=== PATIENT | female | born 1950 | race Hispanic/Latino ===

== ENCOUNTER 2017-04-11 09:20 | Observation (INO) | payer MEDICARE, OTHER ==
[~2017-04-11] VITALS: Ht 157.5 cm; Wt 63.2 kg
[2017-04-11] MEDS ORDERED: IPRATROPIUM BROMIDE 0.02% 2.5 ML NEB NEB STA (09:38)
[2017-04-11] MEDS ORDERED: SODIUM CHLORIDE 0.9% 1000ML 1,000 ML IV STA (09:38)
[2017-04-11] MEDS ORDERED: ALBUTEROL SULF 0.083% NEB SOLN 3 ML NEB NEB STA (09:38)
[2017-04-11] MEDS ORDERED: ACETAMINOPHEN 325 MG TAB PO STA (09:38)
--- NOTE | 2017-04-11 11:17 | Diagnostic Imaging Report ---
PROCEDURE: CHEST SINGLE (PORTABLE) COMPARISON: None. INDICATIONS: FLU, COUGH FINDINGS: Lungs are well-inflated. Linear opacity in the right midlung. No airspace consolidation, pleural effusion, or pneumothorax. Stable cardiomediastinal contour with atherosclerotic calcification of the thoracic aorta. Normal heart size. No overt pulmonary edema. No acute osseous abnormality. CONCLUSION: Subsegmental atelectasis in the right midlung. Otherwise no acute cardiopulmonary abnormality. No consolidative pneumonia. Dictated by: Himanshu Cleveland M.D. on 04/11/2017 at 11:25 Electronically approved by: Himanshu Cleveland M.D. on 04/11/2017 at 11:25
[2017-04-11 11:32] LABS: BASOPHILS # (AUTO) 0.1 (0.0-0.1); BASOPHILS % 0.3 % (0.0-1.0); EOSINOPHILS # (AUTO) 0.1 (0.0-0.4); EOSINOPHILS % 0.6 % (0.0-6.0); HEMATOCRIT 37.8 % (34.2-44.1); HEMOGLOBIN 12.8 g/dL (12.0-16.0); LYMPHOCYTES # (AUTO) 2.8 (1.0-3.2); LYMPHOCYTES % 19.8 % (18.0-39.1); MEAN CORPUSCULAR HEMOGLOBIN 30.5 pg (28-32); MEAN CORPUSCULAR HGB CONC 33.9 g/dL (31-35); MONOCYTES # (AUTO) 0.8 (0.2-0.8); MONOCYTES % 5.8 % (4.4-11.3); NEUTROPHILS # (AUTO) 10.5 (2.1-6.9); NEUTROPHILS % 73.1 % (38.7-80.0); PLATELET COUNT 258 x10e3/uL (140-360); RED CELL DISTRIBUTION WIDTH 12.3 % (11.7-14.4)
[2017-04-11 11:53] LABS: ALANINE AMINOTRANSFERASE 20 IU/L (0-55); ALBUMIN 3.8 g/dL (3.5-5.0); ALBUMIN/GLOBULIN RATIO 0.8 (0.8-2.0); ALKALINE PHOSPHATASE 94 IU/L (40-150); ANION GAP 14.4 mmol/L (8-16); BLOOD UREA NITROGEN 14 mg/dL (7-26); BUN/CREATININE RATIO 19 (6-25); CALCIUM 9.6 mg/dL (8.4-10.2); CARBON DIOXIDE 26 mmol/L (22-29); CHLORIDE 100 mmol/L (98-107); CREATINE KINASE 51 IU/L (29-168); CREATININE, SERUM 0.73 mg/dL (0.57-1.11); EST GLOMERULAR FILTRATION RATE > 60 ML/MIN (60-); GLUCOSE 96 mg/dL (74-118); POTASSIUM 3.4 mmol/L (3.5-5.1); SODIUM 137 mmol/L (136-145)
[2017-04-11] MEDS ORDERED: SODIUM CHLORIDE 0.9% 1000ML 1,000 ML IV SCH (12:01)
[2017-04-11 12:02] LABS: TROPONIN I < 0.001 ng/mL (0-0.300)
[2017-04-11] MEDS ORDERED: LEVOFLOXACIN 750MG/DEXTROSE PREMIX BAG 150ML IV SCH (12:15)
[2017-04-11 14:35] VITALS: BP 132/60
[2017-04-11 14:56] VITALS: BP 132/60
[2017-04-11 15:32] VITALS: BP 132/60
[2017-04-11] MEDS: LEVOFLOXACIN 750MG/D5W 150ML 150 ML IV SCH (15:52)
[2017-04-11] MEDS: OSELTAMIVIR PHOSPHATE 75 MG CAP PO SCH (15:52)
[2017-04-11 18:46] LABS: CREATINE KINASE MB 0.3 ng/mL (0.00-5.00); TROPONIN I 0.001 ng/mL (0-0.300)
[2017-04-11] MEDS ORDERED: POTASSIUM CHLORIDE 20 MEQ TAB CR PO ONE (19:00)
[2017-04-11 19:22] LABS: BILIRUBIN,URINE 1+ (NEGATIVE); KETONES,URINE 2+ (NEGATIVE); LEUKOCYTE ESTERASE ,URINE 2+ (NEGATIVE); NITRITE,URINE NEGATIVE (NEGATIVE); URINE UROBILINOGEN 4 mg/dL (0.2 - 1)
[2017-04-11 19:24] LABS: CLARITY,URINE SL CLOUDY (CLEAR); COLOR,URINE YELLOW (YELLOW); PROTEIN,URINE DIPSTICK TRACE (NEGATIVE)
[2017-04-11] MEDS ORDERED: AMITRIPTYLINE H25 MG PO (19:25)
[2017-04-11] MEDS ORDERED: LOVASTATIN20 MG (19:25)
[2017-04-11] MEDS ORDERED: MECLIZINE HCL12.5 MG PO (19:25)
[2017-04-11] MEDS ORDERED: METOCLOPRAMIDE10 MG PO (19:25)
[2017-04-11] MEDS ORDERED: BUSPIRONE HCL5 MG PO (19:25)
[2017-04-11] MEDS ORDERED: VESICARE5 MG PO (19:25)
[2017-04-11] MEDS ORDERED: ASPIRIN325 MG PO (19:26)
[2017-04-11 19:35] LABS: AMORPHOUS SEDIMENT,URINE MODERATE (FEW); EPITHELIAL CELLS,URINE MANY /LPF; RBC,URINE 21-50 /HPF (0-5)
[2017-04-11 20:00] VITALS: BP 130/62
[2017-04-11] MEDS: IPRATROPIUM BROMIDE 0.02% 2.5 ML NEB NEB SCH (20:05)
[2017-04-11] MEDS: ALBUTEROL SULF 0.083% NEB SOLN 3 ML NEB NEB SCH ×2 (20:05→23:00)
[2017-04-11] MEDS: GUAIFENESIN 600 MG TAB PO SCH (20:38)
[2017-04-11] MEDS: SIMVASTATIN 20 MG TAB PO SCH (20:39)
[2017-04-11] MEDS: METOCLOPRAMIDE HCL 10 MG/2ML VIAL IV SCH (20:39)
[2017-04-11 21:40] VITALS: BP 130/62
[2017-04-12] VITALS: BP 124/67
[2017-04-12] MEDS ORDERED: GUAIFENESIN 600 MG TAB PO SCH
[2017-04-12] MEDS: GUAIFENESIN 600 MG TAB PO SCH ×5 (01:24→23:30)
[2017-04-12] MEDS: ALBUTEROL SULF 0.083% NEB SOLN 3 ML NEB NEB SCH ×5 (02:24→20:31)
[2017-04-12] MEDS: IPRATROPIUM BROMIDE 0.02% 2.5 ML NEB NEB SCH ×4 (02:24→20:31)
[2017-04-12 04:00] VITALS: BP 119/56
[2017-04-12 06:25] LABS: BASOPHILS % 0.2 % (0.0-1.0); EOSINOPHILS % 0.2 % (0.0-6.0); HEMATOCRIT 32.6 % (34.2-44.1); HEMOGLOBIN 11.3 g/dL (12.0-16.0); LYMPHOCYTES # (AUTO) 2.9 (1.0-3.2); LYMPHOCYTES % 32.3 % (18.0-39.1); MEAN CORPUSCULAR HEMOGLOBIN 30.7 pg (28-32); MEAN CORPUSCULAR HGB CONC 34.7 g/dL (31-35); MEAN CORPUSCULAR VOLUME 88.6 fL (81-99); MONOCYTES # (AUTO) 0.8 (0.2-0.8); MONOCYTES % 8.9 % (4.4-11.3); NEUTROPHILS # (AUTO) 5.2 (2.1-6.9); NEUTROPHILS % 57.8 % (38.7-80.0); PLATELET COUNT 229 x10e3/uL (140-360); RED BLOOD COUNT 3.68 x10e6/uL (3.6-5.1); RED CELL DISTRIBUTION WIDTH 12.2 % (11.7-14.4)
[2017-04-12 06:53] LABS: ANION GAP 11.9 mmol/L (8-16); BLOOD UREA NITROGEN 11 mg/dL (7-26); BUN/CREATININE RATIO 16 (6-25); CALCIUM 8.8 mg/dL (8.4-10.2); CARBON DIOXIDE 26 mmol/L (22-29); CHLORIDE 107 mmol/L (98-107); CREATINE KINASE 64 IU/L (29-168); CREATININE, SERUM 0.67 mg/dL (0.57-1.11); EST GLOMERULAR FILTRATION RATE > 60 ML/MIN (60-); GLUCOSE 103 mg/dL (74-118); MAGNESIUM 1.8 MG/DL (1.3-2.1); POTASSIUM 3.9 mmol/L (3.5-5.1); SODIUM 141 mmol/L (136-145)
[2017-04-12 07:02] LABS: B-TYPE NATRIURETIC PEPTIDE2 < 10.0 pg/mL (0-100)
[2017-04-12 07:16] LABS: FREE T4 (FREE THYROXINE) 1.25 ng/dL (0.8-1.8); THYROID STIMULATING HORMONE 2.922 uIU/mL (0.350-4.940); TROPONIN I 0.028 ng/mL (0-0.300)
[2017-04-12 08:59] VITALS: BP 118/58
[2017-04-12] MEDS ORDERED: ASPIRIN 325 MG TAB PO SCH (09:00)
[2017-04-12] MEDS: MECLIZINE HCL 12.5 MG TAB PO SCH (09:04)
[2017-04-12] MEDS: AMITRIPTYLINE HCL 25 MG TAB PO SCH (09:04)
[2017-04-12] MEDS: FAMOTIDINE 20 MG TAB PO SCH ×2 (09:04→17:05)
[2017-04-12] MEDS: ENOXAPARIN SOD INJ 40 MG/0.4 ML SYR SC SCH (09:04)
[2017-04-12] MEDS: METOCLOPRAMIDE HCL 10 MG/2ML VIAL IV SCH ×4 (09:04→20:25)
[2017-04-12] MEDS: OSELTAMIVIR PHOSPHATE 75 MG CAP PO SCH ×2 (09:04→17:05)
[2017-04-12] MEDS: SOLIFENACIN SUCCINATE 5 MG TAB PO SCH (09:04)
[2017-04-12] MEDS: BUSPIRONE HCL 5 MG TAB PO SCH ×2 (09:04→17:05)
[2017-04-12 12:01] VITALS: BP 125/60
[2017-04-12] MEDS: LEVOFLOXACIN 750MG/D5W 150ML 150 ML IV SCH (12:51)
[2017-04-12 16:00] VITALS: BP 122/56
[2017-04-12 20:16] VITALS: BP 127/60
[2017-04-12] MEDS: SIMVASTATIN 20 MG TAB PO SCH (20:25)
[2017-04-13 00:15] VITALS: BP 123/63
[2017-04-13] MEDS: IPRATROPIUM BROMIDE 0.02% 2.5 ML NEB NEB SCH ×3 (02:03→13:00)
[2017-04-13] MEDS: ALBUTEROL SULF 0.083% NEB SOLN 3 ML NEB NEB SCH ×3 (02:03→11:20)
[2017-04-13] MEDS: GUAIFENESIN 600 MG TAB PO SCH ×2 (05:23→12:11)
[2017-04-13 05:24] VITALS: BP 111/57
[2017-04-13 06:02] LABS: BASOPHILS # (AUTO) 0.1 (0.0-0.1); BASOPHILS % 0.7 % (0.0-1.0); EOSINOPHILS # (AUTO) 0.1 (0.0-0.4); HEMATOCRIT 33.4 % (34.2-44.1); HEMOGLOBIN 11.5 g/dL (12.0-16.0); LYMPHOCYTES # (AUTO) 2.9 (1.0-3.2); LYMPHOCYTES % 35.6 % (18.0-39.1); MEAN CORPUSCULAR HEMOGLOBIN 30.7 pg (28-32); MEAN CORPUSCULAR HGB CONC 34.4 g/dL (31-35); MEAN CORPUSCULAR VOLUME 89.1 fL (81-99); MONOCYTES # (AUTO) 0.8 (0.2-0.8); MONOCYTES % 9.6 % (4.4-11.3); NEUTROPHILS # (AUTO) 4.3 (2.1-6.9); NEUTROPHILS % 52.6 % (38.7-80.0); PLATELET COUNT 253 x10e3/uL (140-360); RED BLOOD COUNT 3.75 x10e6/uL (3.6-5.1); RED CELL DISTRIBUTION WIDTH 12.5 % (11.7-14.4)
[2017-04-13 06:19] LABS: ANION GAP 12.6 mmol/L (8-16); BLOOD UREA NITROGEN 11 mg/dL (7-26); BUN/CREATININE RATIO 15 (6-25); CALCIUM 9.2 mg/dL (8.4-10.2); CARBON DIOXIDE 26 mmol/L (22-29); CHLORIDE 106 mmol/L (98-107); CREATININE, SERUM 0.71 mg/dL (0.57-1.11); EST GLOMERULAR FILTRATION RATE > 60 ML/MIN (60-); GLUCOSE 104 mg/dL (74-118); POTASSIUM 3.6 mmol/L (3.5-5.1); SODIUM 141 mmol/L (136-145)
[2017-04-13] MEDS: METOCLOPRAMIDE HCL 10 MG/2ML VIAL IV SCH ×2 (07:30→12:11)
[2017-04-13 08:00] VITALS: BP 115/57
[2017-04-13] MEDS: OSELTAMIVIR PHOSPHATE 75 MG CAP PO SCH (09:51)
[2017-04-13] MEDS: BUSPIRONE HCL 5 MG TAB PO SCH (09:51)
[2017-04-13] MEDS: ENOXAPARIN SOD INJ 40 MG/0.4 ML SYR SC SCH (09:51)
[2017-04-13] MEDS: SOLIFENACIN SUCCINATE 5 MG TAB PO SCH (09:51)
[2017-04-13] MEDS: MECLIZINE HCL 12.5 MG TAB PO SCH (09:51)
[2017-04-13] MEDS: AMITRIPTYLINE HCL 25 MG TAB PO SCH (09:51)
[2017-04-13] MEDS: FAMOTIDINE 20 MG TAB PO SCH (09:51)
[2017-04-13 10:50] VITALS: BP 115/57
[2017-04-13] MEDS ORDERED: LEVAQUIN PO ×2 (10:50→10:53)
[2017-04-13] MEDS ORDERED: TAMIFLU75 MG PO ×2 (10:50→10:53)
[2017-04-13] MEDS ORDERED: MUCINEX600 MG PO (10:50)
[2017-04-13] MEDS ORDERED: MUCINEX DM ER1 EACH PO (10:53)
[2017-04-13 12:00] VITALS: BP 115/56
[2017-04-13] MEDS: LEVOFLOXACIN 750MG/D5W 150ML 150 ML IV SCH (12:11)
--- NOTE | 2017-04-15 13:00 | Discharge Summary ---
ADMITTING DIAGNOSES 1. Flu, possible pneumonia. 2. Hypertension. 3. Hyperlipidemia. 4. Hypokalemia. 5. Anxiety. 6. Urinary retention. DISCHARGE DIAGNOSES Flu, possible pneumonia. Hypertension. Hyperlipidemia. Hypokalemia. Anxiety. Rule out urinary retention. HISTORY: Patient has a history of stroke with right-sided weakness, hypertension, hyperlipidemia, anxiety, migraines, and bilateral tubal ligation. HOSPITAL COURSE: A 67-year-old female presented with fever, dry cough, chest congestion, vomiting, and muscle aches for the last 2 weeks that worsened over the last few days despite using three days of Tamiflu. She denies sinus drainage, congestion, and diarrhea. She denies any sick contacts. On admission, a chest x-ray was done that showed subsegmental atelectasis in the right mid lung, otherwise no acute cardiopulmonary abnormality, no consolidative pneumonia. Blood cultures negative. Urine cultures negative. Flu negative. Patient was started on Tamiflu and Levaquin, Mucinex ,and nebs. For hypertension and hyperlipidemia, home medicines were continued. Patient says she took lisinopril at home, but could not remember the dose; therefore, she was never given lisinopril during the hospital stay. Her blood pressure remained good enough to not need of lisinopril. Hypokalemia, on admission, her potassium was 3.4, was repleted and remained normal through the hospital stay. Patient felt better each day and was discharged home with Levaquin and 3 doses of Tamiflu and Mucinex. Patient will resume home medicines without lisinopril and will follow up with primary care in 1 to 2 weeks. Dictated by: Arlen Lam NP Job#: [id number] LAUREEN
== END 2017-04-13 14:15 | disposition home or self-care (01) ==
LOC: ER 09:20 → ERHOLD 13:02 → IMCU 13:10
PROVIDERS: ADMIT Internal Medicine; ATTEND Internal Medicine
DX: J11.1 Influenza due to unidentified influenza virus with other respiratory manifestations (principal); E87.6 Hypokalemia; I10 Essential (primary) hypertension; E78.5 Hyperlipidemia, unspecified; F41.9 Anxiety disorder, unspecified; G43.909 Migraine, unspecified, not intractable, without status migrainosus; I69.351 Hemiplegia and hemiparesis following cerebral infarction affecting right dominant side; Z79.82 Long term (current) use of aspirin
CPT/HCPCS: 36415 ×3; 71010; 80048 ×2; 80053; 81001; 82550 ×2; 82553 ×2; 83036; 83735; 83880; 84439; 84443; 84484 ×2; 85025 ×3; 87040; 87086; 87400; 93005; 94640 ×3; 99284; G0378 ×3; J1650 ×2; J2765 ×3; J7030

== ENCOUNTER 2018-07-01 10:31 | Observation (INO) | payer MEDICARE, OTHER ==
[~2018-07-01] VITALS: Ht 157.5 cm; Wt 63.6 kg
[~2018-07-01 10:31] MED LIST: AMITRIPTYLINE H25 MG PO; ASPIRIN325 MG PO; BUSPIRONE HCL5 MG PO; LEVAQUIN PO; LOVASTATIN20 MG; MECLIZINE HCL12.5 MG PO; METOCLOPRAMIDE10 MG PO; MUCINEX DM ER1 EACH PO; MUCINEX600 MG PO; TAMIFLU75 MG PO; VESICARE5 MG PO
--- OUTSIDE RECORDS SUMMARY | 2018-07-01 10:33 | XMS REPORT ---
Author Author [facility] Address Unknown Phone Unavailable Care Team Providers Care Automation Control Integrator Name Role Phone BETTYE REYES Unavailable Unavailable Rigo ORNELAS Unavailable Unavailable Payers Payer Name Policy Type Policy Number Effective Date Expiration Date Problems This patient has no known problems. Allergies, Adverse Reactions, Alerts Allergy Name Allergy Type Status Severity Reaction(s) Onset Date Inactive Date Treating Clinician Comments No Known Allergies DA Active U 2018-04-02 00:00:00 Medications This patient has no known medications. Encounters Start Date/Time End Date/Time Encounter Type Admission Type Attending Clinicians Care Facility Care Department Encounter ID 2017-01-04 00:00:00 2017-01-04 00:00:00 Outpatient [facility] [id number] Results Test Description Test Time Test Comments Text Results Atomic Results Result Comments CHEST SINGLE (PORTABLE) [facility] [address] [address] Patient Name: ELPIDIO GREEN MR #: [id number] : 1950 Age/Sex: 67/F Req #: [id number] Adm Physician: Ordered by: BETTYE REYES MD Report #: [id number] Location: ER Room/Bed: Procedure: [id number] DX/CHEST SINGLE (PORTABLE) Exam Date: Exam Time: REPORT STATUS: Signed PROCEDURE: CHEST SINGLE (PORTABLE) COMPARISON: None. INDICATIONS: FLU, COUGH FINDINGS: Lungs are well-inflated. Linear opacity in the right midlung. No airspace consolidation, pleural effusion, or pneumothorax. Stable cardiomediastinal contour with atherosclerotic calcification of the thoracic aorta. Normal heart size. No overt pulmonary edema. No acute osseous abnormality. CONCLUSION: Subsegmental atelectasis in the right midlung. Otherwise no acute cardiopulmonary abnormality. No consolidative pneumonia. Dictated by: Helio Mensah M.D. on 04/11/2017 at 11:25 Electronically approved by: Helio Mensah M.D. on 04/11/2017 at 11:25 Dictated By: HELIO MENSAH MD 1125 Transcribed By: ADRIAN on 04/11/17 1125 COPY TO: BETTYE REYES MD ABDOMEN ACUTE SERIES W/PA CXR [address] [place] [address] Patient Name: ELPIDIO GREEN MR #: [id number] : 1950 Age/Sex: 66/F Req #: [id number] Adm Physician: Ordered by: BEATRIZ ORNELAS MD Report #: [id number] Location: ER Room/Bed: Procedure: [id number] DX/ABDOMEN ACUTE SERIES W/PA CXR Exam Date: 12/12/16 Exam Time: 2214 REPORT STATUS: Signed EXAM: ABDOMEN ACUTE SERIES W/PA CXR DATE: 12/12/2016 10:02 PM Time stamp on exam: 2208 hours INDICATION: Abdominal pain COMPARISON: None FINDINGS: LINES/TUBES: None BOWEL PATTERN: No evidence for obstruction. SOFT TISSUES: Few pelvic phleboliths in the right hemipelvis. LUNGS: The lungs are clear. BONES: No acute findings. Partial sacralization of the right transverse process of L5. IMPRESSION: Nonobstructive bowel gas pattern. No acute intrathoracic abnormality Signed by: Dr. Mike Arriola M.D. on 12/12/2016 10:43 PM Dictated By: MIKE MEJIA MD 42 Transcribed By: HENRIQUE on 12/12/162242 COPY TO: BEATRIZ ORNELAS MD
--- NOTE | 2018-07-01 11:33 | Diagnostic Imaging Report ---
EXAMINATION: Head CT HISTORY: Facial numbness for the last hour COMPARISON: None. TECHNIQUE: Multidetector axial images were obtained without contrast from the foramen magnum to the vertex . The images were reconstructed using brain and bone algorithms. Thin section brain images were reformatted into coronal and sagittal planes. Image quality: Motion/streaking artifact limits the evaluation of the skull base and posterior cranial fossa. Dose modulation, iterative reconstruction, and/or weight based adjustment of the mA/kV was utilized to reduce the radiation dose to as low as reasonably achievable. FINDINGS: Parenchyma: 1. Few scatter mostly juxtacortical white matter hypodensities, most likely nonspecific chronic microvascular ischemic changes. 2. No mass or hemorrhage. No CT evidence of acute territorial vascular insult. Extra-axial spaces:No abnormal density. No extra-axial fluid collections Brain volume: Normal for age. Ventricles: No hydrocephalus or displacement. Arteries: No density suggestive of thrombus. Dural sinuses: No abnormal density. Extra-axial spaces: No abnormal density. Foramen magnum: No mass, Chiari malformation, or basilar invagination. Sella: No obvious mass. Paranasal/mastoid sinuses: Mucosal inflammatory thickening and partial opacification of the left greater than right sphenoid sinuses, otherwise clear. Skull/Scalp: No lytic or blastic lesions. No fractures. IMPRESSION: 1. No acute hemorrhage or cortical infarct. 2. Mild white matter chronic microvascular ischemic changes. 3. Sphenoid sinusitis. Signed by: Dr. Mey Floyd M.D. on 07/01/2018 11:30 AM
[2018-07-01 11:41] LABS: BASOPHILS # (AUTO) 0.1 (0.0-0.1); BASOPHILS % 0.7 % (0.0-1.0); EOSINOPHILS # (AUTO) 0.2 (0.0-0.4); EOSINOPHILS % 1.7 % (0.0-6.0); HEMATOCRIT 38.7 % (34.2-44.1); HEMOGLOBIN 13.1 g/dL (12.0-16.0); LYMPHOCYTES % 33.3 % (18.0-39.1); MEAN CORPUSCULAR HGB CONC 33.9 g/dL (31-35); MEAN CORPUSCULAR VOLUME 88.6 fL (81-99); MONOCYTES # (AUTO) 0.7 (0.2-0.8); MONOCYTES % 8.1 % (4.4-11.3); NEUTROPHILS % 55.9 % (38.7-80.0); PLATELET COUNT 271 x10e3/uL (140-360); RED BLOOD COUNT 4.37 x10e6/uL (3.6-5.1); RED CELL DISTRIBUTION WIDTH 13.4 % (11.7-14.4)
[2018-07-01 11:44] LABS: INR 0.91; PROTHROMBIN TIME 12.7 seconds (11.9-14.5)
[2018-07-01 11:45] LABS: PARTIAL THROMBOPLASTIN TIME 29.9 seconds (23.8-35.5)
[2018-07-01 11:55] LABS: ALANINE AMINOTRANSFERASE 17 IU/L (0-55); ALKALINE PHOSPHATASE 102 IU/L (40-150); ANION GAP 14.9 mmol/L (8-16); BLOOD UREA NITROGEN 8 mg/dL (7-26); BUN/CREATININE RATIO 11 (6-25); CALCIUM 9.5 mg/dL (8.4-10.2); CARBON DIOXIDE 21 mmol/L (22-29); CHLORIDE 100 mmol/L (98-107); CREATINE KINASE 67 IU/L (29-168); CREATININE, SERUM 0.74 mg/dL (0.57-1.11); EST GLOMERULAR FILTRATION RATE > 60 ML/MIN (60-); GLUCOSE 105 mg/dL (74-118); POTASSIUM 3.9 mmol/L (3.5-5.1); SODIUM 132 mmol/L (136-145)
--- NOTE | 2018-07-01 12:09 | Diagnostic Imaging Report ---
A single frontal view of the chest. HISTORY: Face numbness COMPARISON: None available. DISCUSSION: Portable technique, limits sensitivity of the exam. Soft tissue attenuation partially limits sensitivity of the exam. Overlying artifacts. Tubes/Lines: None Lungs and pleura: The lungs are well inflated. No evidence of a consolidative pneumonia or pulmonary alveolar edema. No definite pleural effusion or pneumothorax is identified. Heart and mediastinum: The cardiomediastinal silhouette appears unremarkable. Bones and soft tissues: Appear unremarkable, given this limited exam. IMPRESSION: No acute radiographic abnormality. Signed by: Dr. Waldo Rodriguez D.O., M.M.M. on 07/01/2018 12:05 PM
[2018-07-01 12:17] LABS: THYROID STIMULATING HORMONE 2.355 uIU/mL (0.350-4.940)
[2018-07-01 17:17] LABS: BILIRUBIN,URINE NEGATIVE (NEGATIVE); CLARITY,URINE CLEAR (CLEAR); COLOR,URINE YELLOW (YELLOW); KETONES,URINE 2+ (NEGATIVE); LEUKOCYTE ESTERASE ,URINE NEGATIVE (NEGATIVE); NITRITE,URINE NEGATIVE (NEGATIVE); PROTEIN,URINE DIPSTICK NEGATIVE (NEGATIVE)
[2018-07-01 17:18] LABS: URINE UROBILINOGEN 1 mg/dL (0.2 - 1)
[2018-07-01 17:27] LABS: EPITHELIAL CELLS,URINE MANY /LPF
[2018-07-01 17:28] LABS: BACTERIA,URINE MANY /HPF; TRANSITIONAL EPI CELLS,URINE MANY; WBC,URINE (MAN) 0-5 /HPF (0-5)
[2018-07-01] MEDS ORDERED: ASPIRIN 325 MG TAB PO NR (18:15)
[2018-07-01 20:15] VITALS: BP 153/68
[2018-07-01 22:00] VITALS: BP 153/68
[2018-07-01] MEDS ORDERED: BUPROPION HCL150 M2 PO (22:56)
[2018-07-01] MEDS ORDERED: ALENDRONATE SOD70 MG PO (22:56)
[2018-07-01] MEDS ORDERED: COLACE100 MG PO (22:56)
[2018-07-01] MEDS ORDERED: CEFUROXIME250 MG PO (22:56)
[2018-07-01] MEDS ORDERED: PANTOPRAZOLE SO40 MG PO (22:56)
[2018-07-02] VITALS (7 sets, daily range): BP systolic 115–131; BP diastolic 55–88
--- NOTE | 2018-07-02 07:18 | NUR ---
Walking rounds done and report received. patient is awake and alertx3 in NAD. Continues to complain of lower lip numbness, unchanged from yesterday. POC discussed. Patient instructed to call for assistance as needed and verbalized understanding. daughter at the bedside.
[2018-07-02] MEDS ORDERED: ONDANSETRON HCL INJ 2MG/ML 2ML 2 MG/ML VIAL IV PRN (09:00)
[2018-07-02] MEDS ORDERED: BUSPIRONE HCL 5 MG TAB PO PRN (09:00)
[2018-07-02] MEDS ORDERED: HYDRALAZINE HCL 20 MG/ML VIAL IV PRN (09:00)
[2018-07-02] MEDS: BUPROPION HCL SR 150 MG TAB PO SCH (09:06)
[2018-07-02] MEDS: ACETAMINOPHEN 325 MG TAB PO PRN (09:06)
[2018-07-02] MEDS: ASPIRIN 325 MG TAB EC PO SCH (09:06)
[2018-07-02] MEDS: PANTOPRAZOLE SOD 40 MG TABEC PO SCH (09:06)
[2018-07-02] MEDS: SOLIFENACIN SUCCINATE 5 MG TAB PO SCH (09:06)
[2018-07-02 09:08] LABS: BASOPHILS # (AUTO) 0.1 (0.0-0.1); BASOPHILS % 0.8 % (0.0-1.0); EOSINOPHILS # (AUTO) 0.1 (0.0-0.4); EOSINOPHILS % 1.9 % (0.0-6.0); HEMATOCRIT 35.1 % (34.2-44.1); LYMPHOCYTES # (AUTO) 1.8 (1.0-3.2); LYMPHOCYTES % 28.9 % (18.0-39.1); MEAN CORPUSCULAR HEMOGLOBIN 30.1 pg (28-32); MEAN CORPUSCULAR HGB CONC 34.2 g/dL (31-35); MONOCYTES # (AUTO) 0.7 (0.2-0.8); MONOCYTES % 11.2 % (4.4-11.3); NEUTROPHILS # (AUTO) 3.6 (2.1-6.9); NEUTROPHILS % 56.7 % (38.7-80.0); PLATELET COUNT 252 x10e3/uL (140-360); RED BLOOD COUNT 3.99 x10e6/uL (3.6-5.1); RED CELL DISTRIBUTION WIDTH 13.5 % (11.7-14.4)
[2018-07-02 09:23] LABS: ANION GAP 12.1 mmol/L (8-16); BLOOD UREA NITROGEN 11 mg/dL (7-26); BUN/CREATININE RATIO 14 (6-25); CALCIUM 9.2 mg/dL (8.4-10.2); CARBON DIOXIDE 23 mmol/L (22-29); CHLORIDE 103 mmol/L (98-107); CHOL/HDL RATIO 3.4 (3.0-3.6); CHOLESTEROL 164 MD/DL (0-199); CREATININE, SERUM 0.81 mg/dL (0.57-1.11); EST GLOMERULAR FILTRATION RATE > 60 ML/MIN (60-); GLUCOSE 107 mg/dL (74-118); HDL CHOLESTEROL 48 MG/DL (40-60); LDL CHOLESTEROL 97 MG/DL (60-130); POTASSIUM 4.1 mmol/L (3.5-5.1); SODIUM 134 mmol/L (136-145); TRIGLYCERIDES 95 MG/DL (0-149)
[2018-07-02 09:31] LABS: B-TYPE NATRIURETIC PEPTIDE2 < 10.0 pg/mL (0-100)
[2018-07-02 09:43] LABS: FREE T4 (FREE THYROXINE) 1.07 ng/dL (0.9-1.8); THYROID STIMULATING HORMONE 2.829 uIU/mL (0.350-4.940)
--- NOTE | 2018-07-02 12:22 | NUR ---
SOCIAL WORK INITIAL ASSESSMENT Country Sales Manager to bedside to discuss plan of care with patient/family. CM/SW role and care transitions discussed. Anticipated discharge plan discussed along with duration of care. CM/SW discussed patients right to make decisions in care. CM/SW work hours given. Patient lives: WITH DAUGHTER AND FAMILY Admit/Transfer: VIA ED FROM HOME POA/Emergency contact: LIA HALL [phone] Current/Previous Home Health: [facility] PCP/Follow-up Care: KASSIE Current/Previous DME: [facility] [employer] Other Services: NONE Employment Status: NEVER WORKED Areas of Concerns: NONE Referral Needs: NONE Education Needs: NONE IMM/LAM given and signed (if applicable): UPON ADMISSION Goal for discharge: RETURN HOME WITH FAMILY CM/SW left business card at the bedside with contact information. Name and number was also written on the patients whiteboard. Patient verbalized understanding of discussion. CM will follow-up with ongoing discharge and transition of care needs.
--- NOTE | 2018-07-02 12:23 | Diagnostic Imaging Report ---
History: Numbness around mouth Comparison studies: CT head 07/01/2018 Technique: Sagittal T2; axial DWI, FLAIR, MPGR, T1, Coronal FLAIR. Intravenous contrast: None Findings: Scalp: Normal in signal . No masses . Bone marrow: Normal in signal intensity. Extra-axial: No masses, no fluid collections. Brain sulci: Appropriate for age. Ventricles: Normal in size . No hydrocephalus . Parenchyma: Scattered small T-2/flair hyperintensities of the periventricular and deep white matter. Small hyperintensity at the right central juliette. No masses, hemorrhage, acute or chronic vascular insults. Suprasellar region: No abnormalities. Craniocervical junction: No abnormalities. Patent foramen magnum. No Chiari one malformation. Vessels: Normal flow-voids in the arteries and sinuses. Mucosal thickening at the left sphenoid sinus. IMPRESSION: 1. No acute intracranial abnormality. 2. Mild chronic microvascular ischemic changes of the white matter. 3. Nonspecific inflammatory mucosal thickening of the left sphenoid sinus Signed by: DR Urbano Austin M.D. on 07/02/2018 12:20 PM
[2018-07-02] MEDS ORDERED: CEFTRIAXONE SOD 1 GM VIAL IV SCH (13:00)
[2018-07-02] MEDS ORDERED: CEFTRIAXONE SOD 1 GM/NS 50 ML 50 ML IV SCH (13:30)
[2018-07-02] MEDS ORDERED: DOCUSATE SODIUM 100 MG CAP PO SCH (21:00)
[2018-07-02] MEDS ORDERED: SIMVASTATIN 40 MG TAB PO SCH (21:00)
--- NOTE | 2018-07-02 22:17 | Consultation ---
DATE OF CONSULTATION: 07/02/2018 Neurology Consult Note HISTORY OF PRESENT ILLNESS: Ms. Rucker is a 68-year-old right-hand dominant woman with past medical history significant for prior stroke with residual dysarthria, expressive aphasia, and right hemiparesis, admitted to [facility] on July 01, 2018, with symptoms suspicious for transient ischemic attack. At approximately 0900 hours on the morning of admission, the patient experienced the rather sudden onset of a heated sensation over the entire face. Ms. Rucker reports a sensation as though "something was walking" over her entire face as well. The patient and her family report confusion, dizziness, and worsening of the patient's prior neurological deficits. Concerned the patient was having another stroke, Ms. Rucker was brought to the emergency center at [facility] by family members for further evaluation of her symptoms. Upon arrival in the emergency center, the patient was afebrile with a blood pressure of 146/84 mmHg and a pulse of 60 beats per minute. The patient's neurological examination was significant for aphasia, abnormal speech. Otherwise, no focal deficits were noted. While in the emergency center, a CT of the brain without contrast was performed. This study did not reveal evidence of recent large territorial ischemia, hemorrhage, mass, or mass effect. Ms. Rucker was admitted to [facility] under observation status for further evaluation and treatment. As stated above, the patient experienced a stroke in 2017. Residual deficits from that stroke include dysarthria, expressive aphasia, right hemiparesis, poor balance, and impairment of gait resulting in the patient using a cane while ambulating. Ms. Rucker takes aspirin 325 mg by mouth daily for stroke prophylaxis. The patient endorses compliance with this medication. The patient does not report burning with urination, discharge, or urinary urgency. Ms. Rucker does report urinary frequency, but reports this is chronic. REVIEW OF SYSTEMS: Urinary frequency, confusion, dysarthria, expressive aphasia, right facial weakness, right hemiparesis, dizziness which is further described as a vertiginous sensation. Otherwise, a 12-point review of systems is negative. PAST MEDICAL HISTORY: Hyperlipidemia, diastolic congestive heart failure, gastroesophageal reflux disease, prior stroke in 2017 with residual dysarthria, expressive aphasia, right hemiparesis, and osteoporosis. PAST SURGICAL HISTORY: Total hysterectomy, bilateral tubal ligation. PAST HOSPITALIZATIONS: Surgeries/procedures as listed, stroke and stroke like symptoms x3, childbirth x5. FAMILY MEDICAL HISTORY: The patient's paternal and maternal grandparents are . Their medical histories are unknown. The patient's father is . His medical history is unknown. Ms. Rucker's mother is . She had mesothelioma. The patient had 7 brothers. One brother is due to lymphoma. Another brother is from GI cancer. One brother is alive and healthy. Another brother is alive, but has an unknown cancer. Third brother is alive and has diabetes mellitus. Fourth brother is alive and has thyroid disease. Fifth brother is alive, but his medical history is unknown. Ms. Rucker had 5 children, 4 sons and 2 daughters. One son is from sudden infant syndrome. Another son is from electrocution. A third son is following a gunshot wound resulting in quadriplegia with due to infection. The fourth son is alive, but his medical history is unknown. The patient's daughter is alive. She has GI cancer as well as chronic kidney disease. SOCIAL HISTORY: Ms. Rucker is . She is retired. The patient reports a prior history of tobacco use, but quit smoking cigarettes approximately 6 months ago. The patient does not report current or prior alcohol or recreational drug use. HOME MEDICATIONS: Aspirin 325 mg by mouth daily, lovastatin 20 mg by mouth at bedtime daily, alendronate 70 mg by mouth daily, bupropion 150 mg by mouth daily, buspirone 7.5 mg by mouth 3 times daily as needed, cefuroxime 250 mg by mouth every 12 hours, Colace 2 capsules by mouth at bedtime daily, Protonix 40 mg by mouth daily, VESIcare 5 mg by mouth daily. ALLERGIES: NO KNOWN DRUG ALLERGIES. NO KNOWN FOOD ALLERGIES. NO KNOWN ALLERGIES TO LATEX. NO KNOWN ALLERGIES TO IODINE OR OTHER CONTRAST MATERIALS. PHYSICAL EXAMINATION: VITAL SIGNS: Height 62 inches, weight 140 pounds, BMI 25.7 kg/m2, blood pressure 123/60 mmHg, pulse 82 beats per minute, respiratory rate 16 breaths per minute, and oxygen saturation 97% on room air. GENERAL: The patient is awake and alert, does not appear distressed. HEENT: Normocephalic, atraumatic. Pupils are equal, round, and reactive to light. Moist mucous membranes. NECK: Supple. No appreciable thyromegaly. No appreciable carotid bruits. CARDIOVASCULAR: S1, S2, regular rate and rhythm. A low grade systolic ejection murmurs appreciated. No rubs or gallops. RESPIRATORY: Clear to auscultation bilaterally. No wheezes, rhonchi, or rales. EXTREMITIES: The skin is warm and dry. No clubbing, cyanosis, or edema. The posterior tibial and dorsalis pedis pulses are 2+ and symmetric. SKIN: No rashes or lesions. NEUROLOGIC: Memory/Attention: The patient is awake and alert, oriented to person, place, time, and situation. Cranial Nerves: Cranial nerve I - not tested. Cranial nerves II, III, IV, and - pupils are equal and round, reactive briskly to light (from 4 mm to 2 mm). Extraocular movements intact. No nystagmus. Cranial nerve V - sensation to light touch and pinprick is intact in the bilateral V1 through V3 distributions. Strength in the temporalis and masseter muscles are within normal limits. Cranial nerve VII - the face is symmetric as are all facial movements. Strength is within normal limits. Cranial nerve VIII - hearing is intact to finger rub bilaterally. Cranial nerves IX, X - the soft palate elevates equally and symmetrically. Cranial nerve XI - normal strength of the bilateral sternocleidomastoid and trapezius muscles. Cranial nerve XII - the tongue protrudes midline and moves symmetrically from apqh-gb-bell. Strength: Bulk is normal. Strength is 5/5 in the bilateral deltoids, biceps, triceps, wrist flexors and extensors, finger flexors and extensors, intrinsic hand muscles, hip flexors, knee flexors and extensors, ankle dorsiflexion and plantar flexion, and intrinsic foot muscles except as follows: The right wrist and finger extensors are 4/5. Tone is normal. DTRs: Deep tendon reflexes are 2+ and symmetric at the triceps, biceps, brachioradialis, and patellas. Deep tendon reflexes are 1+ and symmetric at the Achilles. Plantar responses are flexor bilaterally. Sensation: Sensation is intact to light touch and pinprick in both arms and both legs. Cerebellar: Yifblw-vgbu-cuhnau and heel-srinivasan movements are intact without dysmetria or other impairment. Gait: Deferred. Speech: Spontaneous speech is very mildly dysarthric without aphasia. Repetition is intact. Involuntary Movements: None. Pronator Drift: None. LABORATORY DATA: The most recent basic metabolic panel is significant only for a serum sodium of 134. A liver function panel collected on July 01, 2018 was unremarkable. Hemoglobin A1c 5.3. B-natriuretic peptide 10.3, less than 10.0. Total cholesterol 164, triglycerides 95, LDL cholesterol 97, HDL cholesterol 48. TSH 2.355, 2.829. Free T4 of 1.07. The CBC with differential and platelets are unremarkable. The coagulation profile is within normal limits. Urinalysis is significant for pH of 8, 2+ ketones, many epithelial and transitional epithelial cells and many bacteria. A urine culture collected on July 01, 2018, grew enterococcus species. DIAGNOSTIC STUDIES: Electrocardiogram on 07/01/2018: Normal sinus rhythm at 85 beats per minute. Chest x-ray on 07/01/2018: No acute radiographic abnormality. CT of the brain without contrast on 07/01/2018: On my review, there is no evidence of recent large territorial ischemia, hemorrhage, mass, or mass effect. Cerebral volumes are appropriate for age. There are findings compatible with ydsg-bv-jbtvhpwb chronic small vessel ischemic disease. Echocardiogram on 07/02/2018: Ejection fraction 50% to 55%. Mild mitral regurgitation. Bilateral carotid artery ultrasound with Doppler on 07/02/2018: There is no atherosclerosis in either carotid artery system. Flow is antegrade in the bilateral vertebral arteries. MRI of the brain without contrast on 07/02/2018: On my review, there is no evidence of recent large territorial ischemia, hemorrhage, mass, or mass effect. Cerebral volumes are appropriate for age. There are scattered T2/FLAIR hyperintense foci of the deep white matter as well as the right central juliette, compatible with mild chronic small vessel ischemic disease. ASSESSMENT AND PLAN: Ms. Rucker is a 68-year-old right-hand dominant woman with past medical history significant for a prior stroke with residual dysarthria, expressive aphasia, and right hemiparesis, admitted to [facility] on July 01, 2018, with transient worsening of the previously described deficits and a urinary tract infection. At present, the patient's neurological examination is significant for mild weakness of the right wrist and finger extensors, diminished ankle jerk reflexes, and very mild dysarthria. The patient's laboratory data and other diagnostic studies have been reviewed and are documented above. In my opinion, Ms. Rucker has not experienced a new cardiovascular event. It is far more likely the patient has recrudescence of prior deficits, probably from the underlying urinary tract infection. RECOMMENDATIONS: Are as follows: 1. Continue antibiotics for the urinary tract infection. 2. Continue aspirin 325 mg by mouth daily for stroke prophylaxis. 3. The patient's goal blood pressure is less than 130/70 mmHg. The patient's blood pressures are at goal. Continue to monitor vital signs per unit protocol and add/adjust antihypertensive medications accordingly. 4. The patient's goal total cholesterol is less than 200 with an LDL of less than 70. The patient's LDL is 96. Continue treatment with her home medication of lovastatin, but increase the dose to 40 mg by mouth at bedtime daily. A repeat lipid panel will need to be drawn in approximately 8 weeks. 5. The patient's goal hemoglobin A1c is less than 7.0. Ms. Rucker does not have a history of diabetes mellitus nor does she take any hypoglycemic medications. 6. Defer treatment of the remaining medical comorbidities to the primary and other services following the patient. There are no other recommendations from the Neurology service at this time. Please call again with any questions or concerns. TIME SPENT: 50 minutes. Michelle Harris MD CP/ENMANUEL /[id number] [facility]
[2018-07-03 00:56] VITALS: BP 120/56
[2018-07-03 04:41] VITALS: BP 110/64
[2018-07-03 05:58] LABS: BASOPHILS # (AUTO) 0.1 (0.0-0.1); BASOPHILS % 0.7 % (0.0-1.0); EOSINOPHILS # (AUTO) 0.2 (0.0-0.4); EOSINOPHILS % 3.3 % (0.0-6.0); HEMATOCRIT 34.6 % (34.2-44.1); HEMOGLOBIN 11.6 g/dL (12.0-16.0); LYMPHOCYTES # (AUTO) 2.1 (1.0-3.2); LYMPHOCYTES % 30.6 % (18.0-39.1); MEAN CORPUSCULAR HEMOGLOBIN 29.7 pg (28-32); MEAN CORPUSCULAR HGB CONC 33.5 g/dL (31-35); MEAN CORPUSCULAR VOLUME 88.5 fL (81-99); MONOCYTES # (AUTO) 0.8 (0.2-0.8); MONOCYTES % 10.9 % (4.4-11.3); NEUTROPHILS # (AUTO) 3.7 (2.1-6.9); NEUTROPHILS % 54.1 % (38.7-80.0); PLATELET COUNT 251 x10e3/uL (140-360); RED BLOOD COUNT 3.91 x10e6/uL (3.6-5.1); RED CELL DISTRIBUTION WIDTH 13.7 % (11.7-14.4)
[2018-07-03 06:21] LABS: ANION GAP 11.1 mmol/L (8-16); BLOOD UREA NITROGEN 9 mg/dL (7-26); BUN/CREATININE RATIO 13 (6-25); CALCIUM 8.9 mg/dL (8.4-10.2); CARBON DIOXIDE 24 mmol/L (22-29); CHLORIDE 105 mmol/L (98-107); CREATININE, SERUM 0.72 mg/dL (0.57-1.11); EST GLOMERULAR FILTRATION RATE > 60 ML/MIN (60-); GLUCOSE 93 mg/dL (74-118); MAGNESIUM 2.1 MG/DL (1.3-2.1); POTASSIUM 4.1 mmol/L (3.5-5.1); SODIUM 136 mmol/L (136-145)
[2018-07-03] MEDS ORDERED: SIMVASTATIN40 MG PO (07:02)
--- NOTE | 2018-07-03 07:18 | NUR ---
PT ALERT AND SITTING IN CHAIR AT BEDSIDE, RESP EVEN, AND UNLABORED NO DISTRESS NOTED PT ABLE TO MAKE NEEDS KNOWN, CALL LIGHT IN REACH FAMILY AT BEDSIDE.
[2018-07-03] MEDS: ASPIRIN 325 MG TAB EC PO SCH (08:35)
[2018-07-03] MEDS: SOLIFENACIN SUCCINATE 5 MG TAB PO SCH (08:35)
[2018-07-03] MEDS: BUPROPION HCL SR 150 MG TAB PO SCH (08:35)
[2018-07-03] MEDS: PANTOPRAZOLE SOD 40 MG TABEC PO SCH (08:35)
[2018-07-03 08:46] VITALS: BP 115/56
[2018-07-03] MEDS: AMPICILLIN SOD 500 MG in SODIUM CHLORIDE 0.9% 50ML 50 ML IV SCH ×2 (11:59→17:38)
[2018-07-03 12:00] VITALS: BP 119/59
[2018-07-03] MEDS ORDERED: SODIUM CHLORIDE 0.9% 250ML 250 ML ONE (12:14)
[2018-07-03] MEDS: ACETAMINOPHEN 325 MG TAB PO PRN (15:55)
[2018-07-03 16:39] VITALS: BP 108/52
[2018-07-03] MEDS ORDERED: AMOXICILLIN500 MG PO (18:58)
--- NOTE | 2018-07-03 19:31 | NUR ---
REPORT GIVEN TO ONCOMING NURSE FOR CONTINUED CARE
[2018-07-03 19:41] VITALS: BP 121/58
--- NOTE | 2018-07-03 20:05 | NUR ---
patient discharged via wheelchair to private auto in stable condition. iv removed from right ac, with tip intact. patient received discharge packet, prescriptions were phoned in by LEHR LOADER of Dr. King.
--- NOTE | 2018-07-04 02:44 | Discharge Summary ---
ADMISSION DIAGNOSES: Transient ischemic attack, hypertension, anxiety, gastroesophageal reflux disease, urinary incontinence, urinary tract infection. DISCHARGE DIAGNOSES: Transient ischemic attack, hypertension, anxiety, gastroesophageal reflux disease, urinary incontinence, urinary tract infection. Rule out transient ischemic attack/rule out cerebrovascular accident. HISTORY: The patient has a history of hypertension, hyperlipidemia, anxiety, migraine, CVA with right deficit which has resolved, GERD, osteoporosis, urinary incontinence. SURGICAL HISTORY: Tubal ligation, hysterectomy. FAMILY HISTORY: The patient's brother had diabetes. The patient's mom had cancer. The patient's brothers had a stroke. SOCIAL HISTORY: The patient admits to quitting smoking and alcohol about 6 months ago. HOSPITAL COURSE: A 68-year-old female complains of bilateral facial tingling that began yesterday around 10 a.m. Her family noticed slurred speech and left-sided weakness. They brought her to the ER. She denies vision changes, trouble swallowing, and new dizziness. She did not check her blood pressure or blood sugar. The symptoms worsened in the ER. On admission, the patient had an echo that showed an EF of 50% to 55%. Carotid Doppler was negative. Chest x-ray negative. CT of the brain negative. MRI of the brain negative. Urology was consulted, who cleared the patient for discharge. She said this is merely her old stroke deficits acting up in the presence of a UTI. Urine culture came back positive for enterococcus. The patient will discharge home with ampicillin and increased dose of simvastatin. The patient and daughter understand discharge instructions and agrees to plan. Vital signs stable. The patient afebrile. Dictated by Arlen Lam NP MD REYNALDO Beal/MODL /[id number]
== END 2018-07-03 20:05 | disposition home or self-care (01) ==
LOC: ER 10:31 → ERHOLD 18:05 → IMCU 20:12
PROVIDERS: ADMIT Internal Medicine; ATTEND Internal Medicine
DX: N39.0 Urinary tract infection, site not specified (principal); I69.351 Hemiplegia and hemiparesis following cerebral infarction affecting right dominant side; I10 Essential (primary) hypertension; R32 Unspecified urinary incontinence; E78.5 Hyperlipidemia, unspecified; F41.9 Anxiety disorder, unspecified; K21.9 Gastro-esophageal reflux disease without esophagitis; M81.0 Age-related osteoporosis without current pathological fracture; Z83.3 Family history of diabetes mellitus; Z82.3 Family history of stroke; Z80.9 Family history of malignant neoplasm, unspecified; I69.322 Dysarthria following cerebral infarction; I69.320 Aphasia following cerebral infarction; Z87.891 Personal history of nicotine dependence; B95.2 Enterococcus as the cause of diseases classified elsewhere
CPT/HCPCS: 36415 ×3; 70450; 70551; 71045; 80048 ×2; 80053; 80061; 81001; 82550; 82553; 83036; 83735 ×2; 83880 ×3; 84439; 84443 ×2; 84484; 85025 ×3; 85610; 85730; 87086; 87186; 93005; 93306; 93880; 97139; 99285; G0378 ×3; J0696; J7050; S0164 ×2

== ENCOUNTER 2020-10-17 10:46 | Inpatient (IN) | payer MEDICARE, OTHER ==
[~2020-10-17] VITALS: Ht 157.5 cm; Wt 56.7 kg
[2020-10-17] MEDS: SODIUM CHLORIDE 0.9% 1000ML 1,000 ML IV SCH (06:40)
[~2020-10-17 10:46] MED LIST changes: +ALENDRONATE SOD70 MG PO; +AMOXICILLIN500 MG PO; +BUPROPION HCL150 M2 PO; +CEFUROXIME250 MG PO; +COLACE100 MG PO; +PANTOPRAZOLE SO40 MG PO; +SIMVASTATIN40 MG PO
[2020-10-17] MEDS ORDERED: SODIUM CHLORIDE 0.9% 1000ML 1,000 ML IV STA (11:00)
[2020-10-17 11:23] LABS: BASOPHILS # (AUTO) 0.1 (0.0-0.1); BASOPHILS % 0.9 % (0.0-1.0); EOSINOPHILS # (AUTO) 0.4 (0.0-0.4); EOSINOPHILS % 5.1 % (0.0-6.0); HEMATOCRIT 37.3 % (34.2-44.1); HEMOGLOBIN 12.4 g/dL (12.0-16.0); LYMPHOCYTES # (AUTO) 2.5 (1.0-3.2); LYMPHOCYTES % 32.1 % (18.0-39.1); MEAN CORPUSCULAR HEMOGLOBIN 31.2 pg (28-32); MEAN CORPUSCULAR HGB CONC 33.2 g/dL (31-35); MEAN CORPUSCULAR VOLUME 93.7 fL (81-99); MONOCYTES # (AUTO) 0.9 (0.2-0.8); MONOCYTES % 10.9 % (4.4-11.3); NEUTROPHILS # (AUTO) 3.9 (2.1-6.9); NEUTROPHILS % 50.4 % (38.7-80.0); PLATELET COUNT 203 x10e3/uL (140-360); RED BLOOD COUNT 3.98 x10e6/uL (3.6-5.1); RED CELL DISTRIBUTION WIDTH 13.3 % (11.7-14.4)
[2020-10-17 11:30] LABS: INR 0.93
[2020-10-17 11:31] LABS: PARTIAL THROMBOPLASTIN TIME 28.2 seconds (23.8-35.5)
[2020-10-17 12:30] LABS: CLARITY,URINE CLEAR (CLEAR); COLOR,URINE YELLOW (YELLOW); KETONES,URINE NEGATIVE (NEGATIVE); LEUKOCYTE ESTERASE ,URINE SMALL (NEGATIVE); NITRITE,URINE NEGATIVE (NEGATIVE); PROTEIN,URINE DIPSTICK NEGATIVE (NEGATIVE); URINE UROBILINOGEN 0.2 mg/dL (0.2 - 1)
[2020-10-17 12:36] LABS: BACTERIA,URINE RARE /HPF; EPITHELIAL CELLS,URINE RARE /LPF; TRANSITIONAL EPI CELLS,URINE RARE; WBC,URINE (MAN) 0-5 /HPF (0-5)
[2020-10-17 13:09] LABS: ALANINE AMINOTRANSFERASE 24 IU/L (0-55); ALBUMIN 3.9 g/dL (3.5-5.0); ALBUMIN/GLOBULIN RATIO 1.3 (0.8-2.0); ALKALINE PHOSPHATASE 90 IU/L (40-150); ANION GAP 10.1 mmol/L (8-16); BLOOD UREA NITROGEN 15 mg/dL (7-26); BUN/CREATININE RATIO 19 (6-25); CALCIUM 8.8 mg/dL (8.4-10.2); CARBON DIOXIDE 22 mmol/L (22-29); CHLORIDE 114 mmol/L (98-107); CREATINE KINASE 53 IU/L (29-168); CREATININE, SERUM 0.77 mg/dL (0.57-1.11); EST GLOMERULAR FILTRATION RATE 74 ML/MIN (60-); GLUCOSE 99 mg/dL (74-118); MAGNESIUM 1.9 MG/DL (1.3-2.1); POTASSIUM 4.1 mmol/L (3.5-5.1); SODIUM 142 mmol/L (136-145)
[2020-10-17] MEDS ORDERED: ASPIRIN 81 MG CHEW TAB PO STA (15:33)
[2020-10-17] MEDS ORDERED: MECLIZINE HCL 12.5 MG TAB PO PRN (15:45)
[2020-10-17 16:57] VITALS: BP 125/54
[2020-10-17 17:00] VITALS: BP 124/54
[2020-10-17] MEDS ORDERED: ASPIRIN81 MG PO (17:59)
[2020-10-17] MEDS ORDERED: MIRTAZAPINE15 MG PO (17:59)
[2020-10-17] MEDS ORDERED: ATORVASTATIN CA20 MG PO (17:59)
[2020-10-17] MEDS ORDERED: FAMOTIDINE20 MG PO (17:59)
[2020-10-17] MEDS ORDERED: HYDROXYZIN10 MG/5 ML PO (17:59)
[2020-10-17] MEDS ORDERED: METOPROLOL SUCC25 MG PO (17:59)
[2020-10-17] MEDS ORDERED: TOPIRAMATE25 MG PO (17:59)
[2020-10-17] MEDS ORDERED: ADVIL200 M1 PO (17:59)
[2020-10-17 18:24] LABS: CREATINE KINASE MB 0.7 ng/mL (0-5.0)
[2020-10-17] MEDS ORDERED: ALPRAZOLAM 1 MG TAB PO PRN (18:30)
[2020-10-17] MEDS ORDERED: IBUPROFEN 200 MG TAB PO PRN (18:30)
[2020-10-17 20:00] VITALS: BP 117/57
[2020-10-17 21:00] VITALS: BP 117/57
[2020-10-17] MEDS: TOPIRAMATE 25 MG TAB PO SCH (22:27)
[2020-10-18] VITALS (7 sets, daily range): BP systolic 94–113; BP diastolic 44–56
[2020-10-18] MEDS: SODIUM CHLORIDE 0.9% 1000ML 1,000 ML IV SCH (01:45)
[2020-10-18 06:08] LABS: BASOPHILS # (AUTO) 0.1 (0.0-0.1); EOSINOPHILS # (AUTO) 0.3 (0.0-0.4); EOSINOPHILS % 5.9 % (0.0-6.0); HEMATOCRIT 36.1 % (34.2-44.1); HEMOGLOBIN 11.8 g/dL (12.0-16.0); LYMPHOCYTES # (AUTO) 2.2 (1.0-3.2); LYMPHOCYTES % 37.8 % (18.0-39.1); MEAN CORPUSCULAR HEMOGLOBIN 31.1 pg (28-32); MEAN CORPUSCULAR HGB CONC 32.7 g/dL (31-35); MONOCYTES # (AUTO) 0.7 (0.2-0.8); MONOCYTES % 11.6 % (4.4-11.3); NEUTROPHILS # (AUTO) 2.5 (2.1-6.9); PLATELET COUNT 185 x10e3/uL (140-360); RED CELL DISTRIBUTION WIDTH 13.5 % (11.7-14.4)
[2020-10-18 06:50] LABS: ALBUMIN 3.5 g/dL (3.5-5.0); ALBUMIN/GLOBULIN RATIO 1.3 (0.8-2.0); ANION GAP 7.5 mmol/L (8-16); CALCIUM 8.4 mg/dL (8.4-10.2); CHOL/HDL RATIO 2.8 (3.0-3.6); CREATININE, SERUM 0.7 mg/dL (0.57-1.11); POTASSIUM 3.5 mmol/L (3.5-5.1)
[2020-10-18 07:06] LABS: CREATINE KINASE 50 IU/L (29-168)
[2020-10-18] MEDS ORDERED: ALPRAZOLAM 1 MG TAB PO PRN (07:45)
[2020-10-18] MEDS: TOPIRAMATE 25 MG TAB PO SCH (07:55)
[2020-10-18] MEDS: ASPIRIN 81 MG ENTERIC COATED PO SCH (07:55)
[2020-10-18] MEDS: METOPROLOL SUCCINATE 25 MG TAB XL PO SCH (16:29)
[2020-10-18] MEDS ORDERED: FAMOTIDINE 20 MG TAB PO SCH (21:00)
[2020-10-18] MEDS ORDERED: CLOPIDOGREL BISULFATE 75 MG TAB PO SCH (21:00)
[2020-10-18] MEDS ORDERED: ATORVASTATIN 40 MG TAB PO SCH (21:00)
[2020-10-18] MEDS ORDERED: ZOLPIDEM TARTRATE 5 MG TAB PO PRN (21:00)
[2020-10-19] VITALS: BP 101/46
[2020-10-19 04:15] VITALS: BP 104/53
[2020-10-19 04:48] LABS: BASOPHILS # (AUTO) 0.1 (0.0-0.1); BASOPHILS % 0.7 % (0.0-1.0); EOSINOPHILS # (AUTO) 0.4 (0.0-0.4); EOSINOPHILS % 5.5 % (0.0-6.0); HEMATOCRIT 35.3 % (34.2-44.1); HEMOGLOBIN 11.6 g/dL (12.0-16.0); LYMPHOCYTES # (AUTO) 2.1 (1.0-3.2); LYMPHOCYTES % 31.8 % (18.0-39.1); MEAN CORPUSCULAR HEMOGLOBIN 30.9 pg (28-32); MEAN CORPUSCULAR HGB CONC 32.9 g/dL (31-35); MEAN CORPUSCULAR VOLUME 93.9 fL (81-99); MONOCYTES # (AUTO) 0.7 (0.2-0.8); MONOCYTES % 10.2 % (4.4-11.3); NEUTROPHILS # (AUTO) 3.4 (2.1-6.9); NEUTROPHILS % 51.5 % (38.7-80.0); PLATELET COUNT 180 x10e3/uL (140-360); RED BLOOD COUNT 3.76 x10e6/uL (3.6-5.1); RED CELL DISTRIBUTION WIDTH 13.5 % (11.7-14.4)
[2020-10-19 05:05] LABS: ALBUMIN 3.4 g/dL (3.5-5.0); ALBUMIN/GLOBULIN RATIO 1.4 (0.8-2.0); CALCIUM 8.5 mg/dL (8.4-10.2); CREATININE, SERUM 0.72 mg/dL (0.57-1.11)
[2020-10-19 07:31] VITALS: BP 102/50
[2020-10-19 08:44] VITALS: BP 102/50
[2020-10-19] MEDS: TOPIRAMATE 25 MG TAB PO SCH (08:53)
[2020-10-19] MEDS: ASPIRIN 81 MG ENTERIC COATED PO SCH (08:53)
[2020-10-19] MEDS: METOPROLOL SUCCINATE 25 MG TAB XL PO SCH (08:54)
[2020-10-19 11:23] VITALS: BP_SYST 118; BP_SYST 94; BP_DIAS 40; BP_DIAS 53
[2020-10-19 15:46] VITALS: BP 119/46
== END 2020-10-19 16:39 | disposition home or self-care (01) | DRG 69 ==
LOC: ER 10:49 → ERHOLD 15:44 → MED/SURG3 16:34
PROVIDERS: ADMIT Internal Medicine; ATTEND Internal Medicine
DX: G45.9 Transient cerebral ischemic attack, unspecified (principal); I69.951 Hemiplegia and hemiparesis following unspecified cerebrovascular disease affecting right dominant side; I10 Essential (primary) hypertension; E78.5 Hyperlipidemia, unspecified; K21.9 Gastro-esophageal reflux disease without esophagitis; I69.322 Dysarthria following cerebral infarction; F17.200 Nicotine dependence, unspecified, uncomplicated; I11.0 Hypertensive heart disease with heart failure; I50.9 Heart failure, unspecified; R01.1 Cardiac murmur, unspecified; Z20.822 Contact with and (suspected) exposure to COVID-19
CPT/HCPCS: 36415; 70450; 70551; 71045; 80053; 80061; 81001; 82550; 82553; 83735; 84484; 85025; 85610; 85730; 87086; 93005; 93306; 93880; 95812; 99284; J7030; U0002

== ENCOUNTER → 2023-12-26 | Outpatient (REF) | payer MEDICARE ==
[~2023-12-26] MED LIST changes: +ADVIL200 M1 PO; +ASPIRIN81 MG PO; +ATORVASTATIN CA20 MG PO; +AUGMENTIN 500-1 EACH PO; +CEPHALEXIN500 MG PO; +FAMOTIDINE20 MG PO; +HYDROXYZIN10 MG/5 ML PO; +METOPROLOL SUCC25 MG PO; +MIRTAZAPINE15 MG PO; +TOPIRAMATE25 MG PO
== END ==
LOC: US 11:37
PROVIDERS: ATTEND Nurse Practitioner Family
DX: R10.9 Unspecified abdominal pain (principal); K59.00 Constipation, unspecified; K62.5 Hemorrhage of anus and rectum
CPT/HCPCS: 76700; 76856

== ENCOUNTER 2024-07-22 17:03 | Emergency (ER) | payer MEDICARE, OTHER ==
[~2024-07-22] VITALS: Ht 157.5 cm; Wt 56.7 kg
[2024-07-22 17:23] VITALS: PULSE 55; RESP 18; TEMP 97.4; O2SAT 100
[2024-07-22] MEDS ORDERED: VALTREX1000 MG PO (18:44)
== END 2024-07-22 18:50 | disposition home or self-care (01) ==
LOC: ER 18:38
DX: B02.29 Other postherpetic nervous system involvement (principal); I10 Essential (primary) hypertension; E78.5 Hyperlipidemia, unspecified; F03.90 Unspecified dementia, unspecified severity, without behavioral disturbance, psychotic disturbance, mood disturbance, and anxiety; K21.9 Gastro-esophageal reflux disease without esophagitis; F41.9 Anxiety disorder, unspecified; F32.A Depression, unspecified; Z86.73 Personal history of transient ischemic attack (TIA), and cerebral infarction without residual deficits
CPT/HCPCS: 99282